=== PATIENT | male | born 1955 | race Caucasian/White ===

== ENCOUNTER 2018-06-14 19:34 | Emergency (ER) | payer OTHER, SELFPAY ==
[2018-06-14 19:47] VITALS: BP 130/51; PULSE 107; RESP 16; TEMP 37.9
--- NOTE | 2018-06-14 20:05 | ED.GENADUL ---
Disposition Clinical Impression: Sepsis Disposition: [facility] Condition: Stable Medical Decision Making - Lab Data Results reviewed for labs ordered during visit: Yes - Radiology Data Radiology results: image reviewed - Medical Decision Making pt here with fever and general weakness. Has low grade temporal temp here, suspect he has sepsis again. He could be having mrsa from accessing his shunt during dialysis. Has no cough or sob so doubt pneumonia. No urinary symptoms to suggest uti. No abdominal pain or discomfort to suggest abscess or intrabdominal source. 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 will order labs and monitor and try to get records from [facility] and [facility] pt remains HD stable, still mild tachycardia at 105. [facility] can't accept pt due to not having dialysis capabilities. [place] [facility] [facility] [place]'t take [place] tonight but may be able to take him in the morning. I discussed with our hospitalist Dr. Araiza who states that he can't accept admission here due to lack of dialsysis capabilities here. Will discuss with [facility]. Discussed with [facility] and they are accepting in transfer, Dr. Jazmyn Arroyo is accepting provider. Pt remains HD stable at this time. - Differential Diagnosis sepsis, pneumonia, blood stream infection History of Present Illness - General Chief complaint: Fever Stated complaint: JENN Time Seen by Provider: 06/14/18 19:55 Source: patient Mode of arrival: EMS Limitations: no limitations - History of Present Illness Initial comments: 62 yo male with hx of esrd on dialysis mwf who comes in with chief complaint of fevers. The past few months he has had episodes of fevers, has been [place] [facility] [place] and also [facility] in March for similar reasons, fever and weakness without a known cause though his blood cultures done here in March prior to transfer to [facility] grew mrsa. He states he was told [facility] didn't know where the mrsa came from but he was tx'd and d/c'd home. Yesterday he had a fever to 101.2 and he went to the [facility] in [facility] and states he had cultures and labs done and had no fever there so was d/c'd home. Tonight he has had general weakness otherwise no other symptoms and had a fever to 104 so came here. Complaint: fever Onset/Timin -: days(s) Consistency: intermittent Improves with: none Worsens with: none Associated Symptoms: weakness Treatments Prior to Arrival: none - Related Data Amitriptyline [Elavil] 10 mg PO DAILY 03/21/13 Aspirin [(None)] 81 mg PO UNKNOWN 03/21/13 Calcium Acetate [Phoslo] 667 mg PO TID 03/21/13 CloNIDine [Catapres-Tts 3] 0.3 mg TD 03/21/13 Diltiazem HCl [Diltiazem ER] 360 mg PO DAILY 03/21/13 Furosemide [Lasix] 10 mg PO 03/21/13 GlipiZIDE [Glucotrol] 10 mg PO BID 03/21/13 Lisinopril [Prinivil] 40 mg PO BID 03/21/13 Metoprolol [Lopressor] 25 mg PO DAILY 03/21/13 Metoprolol [Lopressor] 50 mg PO HS 03/21/13 OxyCODONE/APAP 5 mg/325 mg [Percocet 5 mg/325 mg] 1 tab PO HS 03/21/13 Simvastatin [Zocor] 20 mg PO HS 03/21/13 Sodium Bicarbonate 1,950 mg PO TID 03/21/13 Cinacalcet [Sensipar] 90 mg PO DAILY 08/19/16 Gabapentin 100 mg PO DAILY 08/19/16 Insulin Aspart [Novolog Flexpen] 1 unit SC AC 08/19/16 Insulin Glargine,Hum.rec.anlog [Lantus Solostar] 1 unit SC DAILY 08/19/16 Lanthanum Carbonate [Fosrenol] 500 ng PO DAILY 08/19/16 Psyllium [Metamucil] 1 packet PO DAILY 08/19/16 Sevelamer Carbonate [Renvela] 1 tab PO AC 08/19/16 Allergies Allergy/AdvReac Type Severity Reaction Status Date / Time No Known Allergies Allergy Unverified 01/07/18 16:15 Review of Systems Constitutional: fever, weakness Respiratory: denies: cough, shortness of breath Cardiovascular: denies: chest pain Gastrointestinal: denies: abdominal pain, nausea, vomiting Musculoskeletal: denies: back pain Skin: denies: rash Neurological: denies: headache Comment: All other systems reviewed and negative Past Medical History - Past Medical History Medical history: cancer (Colon), diabetes, ESRD, hypertension Surgical history: cancer surgery (colon resection), vascular surgery (AV fistula) - Social History Alcohol use: none Drug use: none General Exam - General Limitations: no limitations General appearance: alert, in no apparent distress - Head Head exam: Present: atraumatic - Eye Eye exam: Present: normal apperance - ENT ENT exam: Present: mucous membranes moist - Neck Neck exam: Present: normal inspection, full ROM. Absent: meningismus - Respiratory Respiratory exam: Present: normal lung sounds bilaterally. Absent: respiratory distress - Cardiovascular Cardiovascular Exam: Present: regular rate, normal rhythm, normal heart sounds, other (Hr 90 on my exam) - GI/Abdominal GI/Abdominal exam: Present: soft. Absent: tenderness - Extremities Exam Extremities exam: Present: normal inspection. Absent: calf tenderness - Neurological Exam Neurological exam: Present: alert, oriented X3 - Psychiatric Psychiatric exam: Present: normal affect - Skin Skin exam: Present: warm. Absent: rash Course Vital Signs - 24 hr 06/14/18 19:47 Temperature 100.2 F H Pulse 107 H Respiratory 16 Rate Blood Pressure 130/51
[2018-06-14 20:17] LABS: Bilirubin Negative (Negative); Blood Moderate (Negative); Clarity Sl Cloudy; Glucose 250 mg/dL (Negative); Ketones Negative (Negative); Leukocyte Esterase Negative (Negative); Nitrite Negative (Negative); Urobilinogen 0.2 EU/dL (Up TO 0.2); pH >= 9.0 (5-8)
[2018-06-14 20:25] LABS: Abs Immature Grans 0.02 k/cumm (0.0-0.09); Absolute Basophil Count 0.03 k/cumm (0.0-0.2); Absolute Eosinophil Count 0.18 k/cumm (0.0-0.7); Absolute Lymphocyte Count 0.84 k/cumm (1.2-3.4); Absolute Monocyte Count 0.62 k/cumm (0.11-0.7); Absolute Neutrophil Count 5.67 k/cumm (1.2-6.7); Basophils % 0.4; Eosinophils % 2.4; HCT 30.8 % (40.0-50.0); HGB 10.3 g/dL (13.5-17.5); Immature Grans % 0.3; Lymphocytes % 11.4; Mean Corp. HGB Concentration 33.4 g/dL (32.0-36.0); Mean Corpuscular Hemoglobin 31.3 pg (27.0-33.0); Mean Corpuscular Volume 93.6 fL (80-95); Mean Platelet Volume 8.7 fL (8.0-11.0); Monocytes % 8.4; Neutrophils % 77.1; Platelet Count 190 x1000/uL (130-400); RBC 3.29 m/cumm (4.50-6.00); RBC Distribution Width 16.8 % (11.8-14.1); White Blood Cell Count 7.36 k/cumm (4.4-10.8)
[2018-06-14 20:26] LABS: Bacteria Negative HPF (Negative); C & S Indicated? C&S Done As Ordered; Casts Negative LPF (Negative); Crystals Negative HPF (Negative); Epithelial Cells Rare HPF (Negative); Mucus Negative (Negative); RBC 20-50 (0-2); WBC Negative HPF (0-5)
[2018-06-14 20:30] LABS: Lactate-non-spesis 1.5 mmol/L (0.6-1.4)
[2018-06-14 20:56] LABS: ALT 23 U/L (12-78); AST 17 U/L (15-37); Albumin 3.1 g/dL (3.4-5.0); Alkaline Phosphatase 64 U/L (46-116); Anion Gap 11.7 mmol/L (3-11); BUN 44 mg/dL (7-18); Bilirubin, Direct 0.23 mg/dL (0.00-0.20); CO2 26.3 mmol/L (21.0-32.0); Chloride 97 mmol/L (98-107); Estimated GFR 5.77 (mL/min/1.73m2); Glucose 181 mg/dL (70-100); Magnesium 2.3 mg/dL (1.8-2.4); Potassium 5.3 mmol/L (3.5-5.1); Sodium 135 mmol/L (136-145)
[2018-06-14 20:59] LABS: CREATININE 9.26 mg/dL (0.70-1.30)
[2018-06-14] MEDS: VANCOMYCIN 1,000 MG in Normal Saline 250 ML 166.6666 MG IVPB (21:07)
--- NOTE | 2018-06-14 21:57 | DI.VRAD_ITS ---
EXAM: XR Chest, 2 Views CLINICAL HISTORY: 62 years old, male; Signs and symptoms; Fever TECHNIQUE: Frontal and lateral views of the chest. COMPARISON: [facility] - PORTABLE CHEST ONE VIEW 2018-03-19 20:27 FINDINGS: Lungs: Unremarkable. No consolidation. Pleural space: Unremarkable. No pneumothorax. Heart: There is mild cardiomegaly. Mediastinum: Unremarkable. Bones/joints: Marginal osteophytic spurring is present throughout the thoracic vertebrae. IMPRESSION: 1. No acute pulmonary disease or acute thoracic findings are detected. Dictated and Authenticated by: Antonio Vines MD. Ordering:DAYDAY TOLBERT MD
[2018-06-14 22:01] VITALS: BP 151/101; PULSE 94; RESP 18; TEMP 37.3; O2SAT 95
--- NOTE | 2018-06-14 22:03 | DI.REPORT_ITS ---
SYMPTOM/DIAGNOSIS: FEVER CHEST X-RAY: Frontal and lateral views. Comparison 03/19/18. The heart is enlarged but stable. Pulmonary vasculature is within normal limits. No consolidating infiltrates, effusions or pneumothoraces are identified. Degenerative changes are seen in the spine. IMPRESSION: No acute pulmonary process.
[2018-06-14 22:58] VITALS: BP 162/99; PULSE 104; RESP 18; O2SAT 94
[2018-06-14 23:11] VITALS: TEMP 38.4
[2018-06-14] MEDS: Acetaminophen 500 MG TAB 1000 MG PO (23:11)
--- NOTE | 2018-06-17 14:08 | NUR.NOTE ---
Nursing Note: Patient transferred to [place] [id number], urine culture results faxed to [phone].
== END 2018-06-14 23:01 ==
PROVIDERS: Emergency Provider Emergency Medicine
DX: A41.9 Sepsis, unspecified organism (principal); R53.1 Weakness; E11.22 Type 2 diabetes mellitus with diabetic chronic kidney disease; Z79.4 Long term (current) use of insulin; I12.0 Hypertensive chronic kidney disease with stage 5 chronic kidney disease or end stage renal disease; N18.6 End stage renal disease; Z99.2 Dependence on renal dialysis
CPT/HCPCS: 36415; 80053; 80076; 87040; 87077; 96365; 99285; 71046; 81003; 81015; 83605; 83735; 85025; 87086; 87186

== ENCOUNTER 2019-03-03 21:03 | Emergency (ER) | payer OTHER, SELFPAY ==
[2019-03-03] VITALS (46 sets, daily range): BP systolic 64–112; BP diastolic 35–78; PULSE 94–154; RESP 16–35; TEMP 38.3–40; O2SAT 88–99
[2019-03-03] MEDS: Lactated Ringers 500 ML IV (21:10)
--- NOTE | 2019-03-03 21:11 | DI.CT_ITS ---
SYMPTOM/DIAGNOSIS: FEVER, SEPSIS CHEST, ABDOMEN AND PELVIC CT: CHEST: Linear areas of scarring or atelectasis are noted in the lung bases. There are scattered nodular densities in both lungs, the largest in the right upper lobe measuring 9 mm. There is no evidence of a pneumothorax. Mild wall thickening in the duodenum and proximal small bowel suggest the possibility of nonspecific duodenitis and enteritis. These findings to be correlated clinically. Colonic diverticula are noted. Note is made of bilateral gynecomastia. SUMMARY: Scattered nodular densities are noted in both lungs, the largest in the right upper lobe measuring 9 mm. ABDOMEN AND PELVIS: The liver is normal. The gallbladder is normal. The pancreas is normal. The spleen is unremarkable. The adrenals are normal. There is cortical thinning and atrophy involving both kidneys. Focal right hypodensity cannot be further characterized on this examination. There is no evidence of hydronephrosis or ureteral stones. Mild wall thickening of the duodenum and proximal small bowel suggest nonspecific duodenitis or enteritis. Colonic diverticula are present and there is borderline to mild nonspecific colitis involving the sigmoid. There is no evidence of an appendicitis. The bladder is decompressed. Zhou catheter in place. A small quantity of intraluminal fluid is consistent with instrumentation. The reproductive organs as visualized are unremarkable. There is no evidence of free air or free fluid in the intraperitoneal space. No acute bony abnormality is seen. Bilateral fat containing inguinal hernias are demonstrated without evidence of incarceration. There are atherosclerotic changes involving the aorta without evidence of an aneurysm. There is no evidence of lymphadenopathy. SUMMARY: Mild wall thickening of the duodenum and proximal small bowel raise the possibility of nonspecific duodenitis and enteritis, these findings to be correlated clinically. There is also borderline mild nonspecific colitis involving the sigmoid colon.
--- NOTE | 2019-03-03 21:13 | W.ED.GENAD ---
Discharge Plan Disposition Patient Disposition: [facility] Condition: Stable Discharge Details Chief Complaint: Fever Clinical Impression: Septic shock Primary Care Provider: Ann Tate ED Provider: Asher Herrera [place] Meds and New Rx's Prescriptions: No Action furosemide 10 MG/ML solution 10 mg PO RF: 0 glipizide 10 MG tablet 10 mg PO BID RF: 0 oxycodone-acetaminophen 1 TAB tablet 1 tab PO HS RF: 0 amitriptyline 10 MG tablet 10 mg PO DAILY RF: 0 sodium bicarbonate 650 MG tablet 1,950 mg PO TID RF: 0 simvastatin 20 MG tablet 20 mg PO HS RF: 0 aspirin 81 MG tablet,chewable 81 mg PO UNKNOWN RF: 0 lisinopril 40 MG tablet 40 mg PO BID RF: 0 calcium acetate [PhosLo] 667 MG capsule 667 mg PO TID RF: 0 gabapentin 100 MG capsule 100 mg PO DAILY RF: 0 insulin aspart U-100 [Novolog Flexpen U-100 Insulin] 100 UNIT/ML insulin pen 1 unit Sub-Q AC RF: 0 cinacalcet [Sensipar] 30 MG tablet 90 mg PO DAILY RF: 0 insulin glargine [Lantus Solostar U-100 Insulin] 100 UNIT/ML insulin pen 1 unit Sub-Q DAILY RF: 0 sevelamer carbonate [Renvela] 800 MG tablet 2 tab PO AC RF: 0 Psyllium [Metamucil] 1 EACH Pkt 1 packet PO DAILY RF: 0 cephalexin 250 MG capsule 250 mg PO DAILY RF: 0 amlodipine [Norvasc] 5 MG tablet 5 mg PO DAILY RF: 0 allopurinol 100 MG tablet 50 mg PO DAILY RF: 0 Medical Decision Making Patient arrives to ED septic. He received 150 mL's of saline per EMS through a 20-gauge. 18-gauge catheter placed here. 500 mL bolus of LR ordered. He seems a little confused but is denying any pain. He denies difficulty breathing or cough. Records and confirmed that he has had sepsis before without clear source. They presumed from his fistula. He did receive vancomycin late this afternoon after dialysis. Temperature-sensing Zhou placed. Patient still febrile. He is given IV Tylenol. Laboratory studies sent. CT scan of the chest abdomen pelvis without contrast ordered. EKG obtained. Patient's white count and hemoglobin are normal. Kidney function is abnormal consistent with his end-stage renal disease. His creatinine is 5.5 status post dialysis today. Potassium is 5.2. Glucose is 240. Lactic acid is 4.1. Liver function is good. Troponin is 0.09 but has typically been elevated whenever checked and is likely related to kidney disease. Urine does not show evidence of infection. Patient's mental status seems a little better with fluid boluses. Blood pressures were up over 100 transiently but dipped back down. At 250 mL bolus of LR has been ordered. Still awaiting results of CT scan. I have spoken to the [facility] and they do not have beds. Waiting to speak to [facility] for ICU transfer. 23:15 -patient's mental status does seem better to me. His blood pressure continues to go up and down. With fluid boluses tends to be in the 90s. Once the boluses over drops back down. He is almost a liter of LR. We will continue 250 mL boluses up to 2 L before starting levophed. CT scan of the abdomen pelvis shows pulmonary nodules but no pneumonia. Some thickening of the duodenum possibly suggestive of non-specific duodenitis as well as some borderline nonspecific colitis. There is no discrete fluid collections. Patient's stool has become liquidy and brown with a reddish tint which is Hemoccult positive. Case discussed with [facility] ICU team. Reviewed patient's status, labs, CT scans. Recommend giving a dose of Zosyn in addition to the Vanco that he received previously. Continue aliquots of LR boluses. Start levophed if continued low blood pressure after 2 L in. They have accepted him for transfer and admission to the ICU. Helicopter is not flying. We have contacted [facility] and will be transferring the patient down. Dr. Leon is accepting. Medical Records Medical records reviewed: Yes I reviewed the patient's medical records. Lab Data Lab results reviewed: Yes I reviewed the patient's lab results. ECG Data Attestation: I personally reviewed and interpreted this ECG (s) as follows: Prior ECG tracings: not available for review Interpretation: Sinus tachycardia at 144. Normal axis and intervals. Nonspecific rate related ST changes. HPI General Mode of arrival: EMS. Date/Time Provider Initiated Documentation: 03/03/19 21:04. Limitations to Documentation: altered mental status. Information obtained by: patient, family, EMS, RN notes reviewed and old records reviewed. HPI Narrative: Patient is brought in from home by ambulance for evaluation of fever and altered mental status. Patient not able to provide much of a history. He does seem somewhat confused. He is awake and answers questions. He denies any pain. Of shortness of. He had dialysis today. Apparently had a fever at dialysis but was otherwise feeling okay. He was given a gram of vancomycin after dialysis. EMS reports that they gave him 150 mL's of saline in route. He arrives here tachycardic and hypotensive as well as febrile. reports that he has episodes of sepsis without clear etiology. He is been admitted to [facility] previously. He was totally fine all day today until he went to dialysis. Since coming home he has got worse. Related Data Home Medications Medication Instructions Recorded Confirmed amitriptyline 10 mg PO DAILY 03/21/13 06/14/18 aspirin 81 mg PO UNKNOWN 03/21/13 06/14/18 calcium acetate [Phoslo] 667 mg PO TID 03/21/13 06/14/18 furosemide 10 mg PO 03/21/13 03/21/13 glipizide 10 mg PO BID 03/21/13 06/14/18 lisinopril 40 mg PO BID 03/21/13 06/14/18 oxycodone-acetaminophen 1 tab PO HS 03/21/13 06/14/18 simvastatin 20 mg PO HS 03/21/13 06/14/18 sodium bicarbonate 1,950 mg PO TID 03/21/13 06/14/18 Psyllium [Metamucil] 1 packet PO DAILY 08/19/16 06/14/18 cinacalcet [Sensipar] 90 mg PO DAILY 08/19/16 06/14/18 gabapentin 100 mg PO DAILY 08/19/16 06/14/18 insulin aspart U-100 [Novolog 1 unit SUB-Q AC 08/19/16 06/14/18 Flexpen U-100 Insulin] insulin glargine [Lantus Solostar] 1 unit SUB-Q DAILY 08/19/16 06/14/18 sevelamer carbonate [Renvela] 2 tab PO AC 08/19/16 06/14/18 allopurinol 50 mg PO DAILY 06/14/18 06/14/18 amlodipine [Norvasc] 5 mg PO DAILY 06/14/18 06/14/18 cephalexin 250 mg PO DAILY 06/14/18 06/14/18 Allergies Allergy/AdvReac Type Severity Reaction Status Date / Time No Known Allergies Allergy Unverified 06/14/18 22:24 General Stated Complaint: Fever QI: 2 Review of Systems Review of Systems Unobtainable due to mental status [facility] Medical History CAD (coronary artery disease) (Chronic) Diabetes mellitus (Chronic) HTN (hypertension) (Chronic) Hypercholesterolemia (Chronic) EDOUARD (obstructive sleep apnea) (Chronic) Colon cancer (Resolved) Surgical History AV fistula (Chronic) History of heart artery stent (Chronic) S/P colon resection (Inactive) Social History Smoking/Tobacco Use Status: Never Drug use: Never Do you feel safe in your relationship?: Yes Exam Narrative Exam Narrative: Vitals: Patient is febrile, tachycardic and hypotensive. Const: Obese male awake but confused. HEENT: NC/AT. Normal facial exam. Eyes: Normal conjunctiva and sclera. Neck: Supple. Trachea midline. Lungs: Normal respiratory effort but tachypneic. Lungs are clear. Cor: RRR without murmur/gallop. Tachycardic. GI: Soft. NT/ND. No guarding or rebound. Neuro: Awake and mildly confused. CN grossly in tact. No focal deficit, moving all extremities equally. Ext: No C/C/E. No deformity or tenderness. Skin: Warm and dry with faint maculapapular type rash rather diffuse but scattered. No petechia or purpura noted. Course Vital Signs Temperature 100.9 F H 03/03/19 21:03 Pulse 143 H 03/03/19 21:03 Respiratory Rate 33 H 03/03/19 21:03 Blood Pressure 81/52 L 03/03/19 21:03 Pulse Oximetry 96 03/03/19 21:03 Temperature 100.9 F H 03/03/19 21:03 Temperature Source Skin 03/03/19 21:03 Pulse 143 H 03/03/19 21:03 Respiratory Rate 33 H 03/03/19 21:03 Blood Pressure 81/52 L 03/03/19 21:03 Blood Pressure Position Sitting 03/03/19 21:03 Pulse Oximetry 96 03/03/19 21:03 Oxygen Delivery Method Room Air 03/03/19 21:03 Oxygen Flow Rate 0 03/03/19 21:03 Lab/Test Results Lab/Test Results: 03/03/19 21:11 Blood Blood Culture - Pending 03/03/19 21:11 Blood Blood Culture - Pending Critical Care Time Critical Care Time: Yes Total Critical Care Time: 75 Attestation: septic shock
[2019-03-03 21:28] LABS: Lactate-non-spesis 4.1 mmol/l (0.6-1.4)
[2019-03-03 21:29] LABS: Abs Immature Grans 0.02 k/cumm (0.0-0.09); Absolute Basophil Count 0.01 k/cumm (0.0-0.2); Absolute Eosinophil Count 0.03 k/cumm (0.0-0.7); Absolute Lymphocyte Count 0.67 k/cumm (1.2-3.4); Absolute Monocyte Count 0.27 k/cumm (0.11-0.7); Absolute Neutrophil Count 5.39 k/cumm (1.2-6.7); Basophils % 0.2; Eosinophils % 0.5; HCT 44.5 % (40.0-50.0); Immature Grans % 0.3; Lymphocytes % 10.5; Mean Corp. HGB Concentration 31.5 g/dL (32.0-36.0); Mean Corpuscular Hemoglobin 28.7 pg (27.0-33.0); Mean Corpuscular Volume 91.2 fL (80-95); Mean Platelet Volume 9.2 fL (8.0-11.0); Monocytes % 4.2; Neutrophils % 84.3; Platelet Count 325 x1000/uL (130-400); RBC 4.88 m/cumm (4.50-6.00); RBC Distribution Width 20.7 % (11.8-14.1); White Blood Cell Count 6.39 k/cumm (4.4-10.8)
[2019-03-03] MEDS: ACETAMINOPHEN 1,000 MG/100 ML BTL 400 MG IVPB (21:35)
[2019-03-03 21:38] LABS: Bilirubin Negative (Negative); Blood Small (Negative); Clarity Clear; Glucose 500 mg/dL (Negative); Ketones Negative (Negative); Leukocyte Esterase Negative (Negative); Nitrite Negative (Negative); Specific Gravity 1.015 (1.005-1.025); Urobilinogen 0.2 EU/dL (Up TO 0.2); pH 8.5 (5-8)
[2019-03-03 21:43] LABS: Bacteria Negative HPF (Negative); C & S Indicated? No; Casts Negative LPF (Negative); Crystals Negative HPF (Negative); Epithelial Cells Negative HPF (Negative); Mucus Negative (Negative); Other Cells Few Renal (Negative); WBC 0-2 HPF (0-5)
[2019-03-03 21:49] LABS: ALT 33 U/L (12-78); AST 21 U/L (15-37); Albumin 3.6 g/dL (3.4-5.0); Alkaline Phosphatase 104 U/L (46-116); Anion Gap 11.9 mmol/L (3-11); BUN 19 mg/dL (7-18); Bilirubin, Total 1.2 mg/dL (0.2-1.0); CO2 30.1 mmol/L (21.0-32.0); Calcium 9.5 mg/dL (8.5-10.1); Chloride 93 mmol/L (98-107); Estimated GFR 10.58 (mL/min/1.73m2); Glucose 240 mg/dL (70-100); Magnesium 1.9 mg/dL (1.8-2.4); Potassium 5.2 mmol/L (3.5-5.1); Sodium 135 mmol/L (136-145); Total Protein 8.1 g/dL (6.4-8.2)
[2019-03-03 21:52] LABS: CREATININE 5.46 mg/dL (0.70-1.30); Troponin I 0.09 ng/mL (0.00-0.06)
[2019-03-03] MEDS: Lactated Ringers 250 ML 500 ML IV ×2 (22:22→23:00)
--- NOTE | 2019-03-03 22:34 | DI.VRAD_ITS ---
EXAM: CT Chest Without Contrast EXAM DATE/TIME: 03/03/2019 9:13 PM CLINICAL HISTORY: 63 years old, male; Signs and symptoms; Patient HX: Fever, sepsis TECHNIQUE: Imaging protocol: Axial computed tomography images of the chest without intravenous contrast. Coronal and sagittal reformatted images were created and reviewed. Radiation optimization: All CT scans at this facility use at least one of these dose optimization techniques: automated exposure control; mA and/or kV adjustment per patient size (includes targeted exams where dose is matched to clinical indication); or iterative reconstruction. COMPARISON: No relevant prior studies available. FINDINGS: Lungs: Linear scarring or atelectasis both lung bases. Scattered nodular densities both lungs, largest right upper lobe 9 mm. Pleural space: Normal. No pneumothorax. No pleural effusion. Heart: Coronary artery calcifications noted. Aorta: Aorta demonstrates mild atherosclerotic calcification. Lymph nodes: Prominent mediastinal nodes noted. Bones/joints: Unremarkable. No acute fracture. Soft tissues: Bilateral gynecomastia. IMPRESSION: Scattered nodular densities both lungs, largest right upper lobe 9 mm. EXAM: CT Abdomen and Pelvis Without Contrast EXAM DATE/TIME: 03/03/2019 9:13 PM CLINICAL HISTORY: 63 years old, male; Signs and symptoms; Patient HX: Fever, sepsis TECHNIQUE: Imaging protocol: Axial computed tomography images of the abdomen and pelvis without contrast. Coronal and sagittal reformatted images were created and reviewed. Radiation optimization: All CT scans at this facility use at least one of these dose optimization techniques: automated exposure control; mA and/or kV adjustment per patient size (includes targeted exams where dose is matched to clinical indication); or iterative reconstruction. COMPARISON: No relevant prior studies available. FINDINGS: Lower thorax: See CT chest report. ABDOMEN: Liver: Normal. No mass. Gallbladder and bile ducts: Normal. No calcified stones. No ductal dilation. Pancreas: Normal. No ductal dilation. Spleen: Normal. No splenomegaly. Adrenals: Normal. No mass. Kidneys and ureters: Cortical thinning and atrophy both kidneys. Focal right renal hypodensity that cannot be further characterized on the current examination. No hydronephrosis. No ureteral stones. Stomach and bowel: Mild wall thickening of the duodenum and proximal small bowel suggestive of a nonspecific duodenitis and enteritis. Correlate clinically. Colonic diverticula present. Borderline mild nonspecific colitis sigmoid colon. Appendix: No evidence of appendicitis. PELVIS: Bladder: Bladder decompressed by a Zhou catheter, but otherwise unremarkable. Small amount of intraluminal air consistent with instrumentation. Reproductive: Unremarkable as visualized. ABDOMEN and PELVIS: Intraperitoneal space: Normal. No free air. No significant fluid collection. Bones/joints: No acute fracture. No dislocation. Soft tissues: Bilateral fat containing inguinal hernias without incarceration. Vasculature: Aorta demonstrates mild atherosclerotic calcification. Lymph nodes: Normal. No enlarged lymph nodes. IMPRESSION: 1. Mild wall thickening of the duodenum and proximal small bowel suggestive of a nonspecific duodenitis and enteritis. Correlate clinically. 2. Borderline mild nonspecific colitis sigmoid colon. Dictated and Authenticated by: Irineo Garcia MD. Ordering:MIGUELITO Sterling MD
[2019-03-03] MEDS: PIPERACILLIN/TAZO 4.5 GM in Normal Saline 100 ML IVPB (23:14)
== END 2019-03-03 23:59 | disposition short-term general hospital (02) ==
PROVIDERS: Emergency Provider Emergency Medicine; PCP Internal Medicine
DX: A41.89 Other specified sepsis (principal); R65.21 Severe sepsis with septic shock; R00.0 Tachycardia, unspecified; I95.9 Hypotension, unspecified; E11.22 Type 2 diabetes mellitus with diabetic chronic kidney disease; I12.0 Hypertensive chronic kidney disease with stage 5 chronic kidney disease or end stage renal disease; N18.6 End stage renal disease; R91.8 Other nonspecific abnormal finding of lung field; Z99.2 Dependence on renal dialysis
CPT/HCPCS: 36415; 51702; 71250; 80053; 87040; 93005; 96361; 96365; 96375; 99291; 74176; 81003; 81015; 83605; 83735; 84484; 85025; 87186; 93010; J2543

== ENCOUNTER 2022-09-11 00:13 | Emergency (ER) | payer OTHER, SELFPAY ==
[2022-09-11] VITALS (103 sets, daily range): BP systolic 48–132; BP diastolic 22–96; PULSE 62–109; RESP 18; TEMP 36.5; O2SAT 93–100
[2022-09-11] MEDS: Tranexamic Acid 1,000 MG/10 ML VIAL 1000 MG IVP (00:15)
--- NOTE | 2022-09-11 00:45 | DI.CT_ITS ---
Exam(s) CT ABDOMEN PELVIS CTA EXAM: CT ABDOMEN PELVIS CTA CLINICAL HISTORY: recent colonoscopy polypectomy, rectal bleed today. TECHNIQUE: Imaging Protocol: Axial CT angiography was performed with multi-slice acquisition and m ulti-planar and/or 3D reconstructions. CONTRAST MATERIAL: Intravenous: Omnipaque 350 Contrast volume:structured data in ml Oral: / no COMPARISON: CT CT CHEST/ABD/PEL WO from 03/03/2019 FINDINGS: Vascular Structures: Celiac Rodanthe/SMA: Celiac artery patent and normal diameter. Mild stenosis superior mesenteric artery. . Renal Arteries: There is a single renal artery perfusing each kidney. Renal arteries are atrophic. Aorta: No aneurysm. No dissection. Mild atherosclerotic changes. Pelvis: Iliac Arteries: Calcifications. No evidence of significant stenosis. Common Femoral Arteries: No evidence of stenosis. There is arterial phase contrast in the left common femoral vein through left iliac vein. The there appears to be communication at the level of the common femoral artery. Heart: Aortic valve prosthesis. Coronary artery stent. Soft Tissues: Lung bases:Mild basilar scarring. Liver: Normal density. No measurable mass. Gallbladder and biliary tract: No radiodense calculus or dilation. Pancreas: Normal density, no abnormal calcifications or inflammatory process. Spleen: Normal. Kidneys: Severe bilateral renal atrophy.. No radiodense stones or obstructive uropathy. No masses se en. Adrenal glands: No masses seen. Bladder: Symmetric distention, no gross wall thickening. Bowel: Large quantity of stool in the rectosigmoid. Remainder of the colon appears fluid filled. No wall thickening.. Right hemicolectomy. Small bowel and stomach unremarkable. No obstruction or julián wel wall thickening. Peritoneal cavity: No ascites, collection or mesenteric inflammatory response. Bones: Degenerative disc changes greatest at L3-4 and L5-S1. Mild scoliosis. Lymph nodes: Within normal limits. IMPRESSION: Status post right hemicolectomy. Large bowel somewhat fluid and stool distended. No inflammatory ch anges. No evidence of bowel ischemia. Abnormal communication between the left common femoral vein and artery, suspicious for AV fistula. RADIATION DOSE DELIVERED: 2,507.47mGy.cm Total DLP DATA REPOSITORY: All CT scans at this facility are submitted to the National Radiology Data Registry (NRDR) Dose Index Registry (DIR) with the [employer] ([employer]). RADIATION OPTIMIZATION: All CT scans at this facility use at least one of these dose optimization te chniques: automated exposure control; mA and/or kV adjustment per patient size (includes targeted exa ms where dose is matched to clinical indication); or iterative reconstruction.
--- NOTE | 2022-09-11 01:06 | W.ED.GENAD ---
Discharge Plan Disposition Patient Disposition: [facility] Condition: Serious Discharge Details Chief Complaint: GI Bleed Clinical Impression: Acute lower GI bleeding, Anemia, Hypotension Primary Care Provider: Ann Tate ED Provider: Reilly Burrows Home Meds and New Rx's Prescriptions: No Action furosemide 10 MG/ML solution 10 mg PO Label Comments: d/c'd glipizide 10 MG tablet 10 mg PO BID oxycodone-acetaminophen 1 TAB tablet 1 tab PO HS amitriptyline 10 MG tablet 10 mg PO BID Rx Instructions: 20 mg at night sodium bicarbonate 650 MG tablet 1,950 mg PO TID simvastatin 20 MG tablet 20 mg PO HS aspirin 81 MG tablet,chewable 81 mg PO UNKNOWN Label Comments: TAKES 4 TIMES PER WEEK lisinopril 40 MG tablet 40 mg PO BID Label Comments: taken off due to hypotension calcium acetate(phosphat bind) [PhosLo] 667 MG capsule 667 mg PO TID Label Comments: not taking gabapentin 100 MG capsule 100 mg PO DAILY insulin aspart U-100 [Novolog Flexpen U-100 Insulin] 100 UNIT/ML insulin pen 1 unit Sub-Q AC cinacalcet [Sensipar] 30 MG tablet 90 mg PO DAILY insulin glargine [Lantus Solostar U-100 Insulin] 100 UNIT/ML insulin pen 1 unit Sub-Q DAILY sevelamer carbonate [Renvela] 800 MG tablet 2 tab PO AC Psyllium [Metamucil] 1 EACH Pkt 1 packet PO DAILY cephalexin 250 MG capsule 250 mg PO DAILY amlodipine [Norvasc] 5 MG tablet 5 mg PO DAILY allopurinol 100 MG tablet 50 mg PO DAILY sevelamer carbonate [Renvela] 800 mg tablet Label Comments: Take 4 tablet by mouth three times a day with meals Ozempic 0.25 mg or 0.5 mg(2 mg/1.5 mL) Pen Injector 0.5 mg SUBCUT KEEP AT BEDSIDE Medical Decision Making 66-year-old male, history of colon cancer status postresection in remission, CKD on hemodialysis Friday, presents after recent colonoscopy on 08/2017 which he had a complex resection of a polyp near his anastomosis site. Patient had 3 episodes of bloody stool this evening. Associated lightheadedness. Has slight conjunctival and skin pallor. Is normotensive not tachycardic. Nonperitoneal. Consider rebleeding at polypectomy site. Low suspicion for perforation low suspicion for active infection. On examination patient has dried blood at anal verge/rectal vault. No active bleeding. Does have nonbleeding external hemorrhoids. Will obtain lab CT angio abdomen pelvis to assess for active bleeding. Will administer tranexamic acid. Disposition pending labs and imaging. 03: 44 patient resting comfortably no acute distress. No further bloody bowel movements while in the department. Remained hemodynamically stable heart rate of 88, manual blood pressure taken 110/58. Awaiting results of CTA abdomen pelvis. Will reassess H&H in the next 1 to 2 hours. Disposition pending results of imaging and reassessment of labs and vital signs. 4: 10 attempted to sit patient up in bed however he became acutely lightheaded. He lowered him down to a supine position with improvement of symptoms. Despite no bowel movements in department and hemodynamic stability I am concerned regarding patient's symptomatology, he also dropped from a baseline likely in the low teens to a hemoglobin of 9. Although there is not acute extravasation of contrast on CT scan patient is at high risk for rebleed and subsequent hypotension. Patient adamant that he does not want to receive a transfusion at this time as he believes it will take him off the kidney transplant list. He is amenable to Epogen however it appears that we do not carry this in the pharmacy. Currently placing consultation for admission to general surgery team. Patient is amenable to transfusion if his clinical status were to deteriorate. Incidental possible AV malformation left femoral per CTA ago patient does have history of catheterization and TAVR that were performed through his groins, has been told that he has slightly abnormal pulses left groin is followed at the [facility]. Warm well perfused lower extremities no signs of ischemia no pulsatile groin mass or bruit appreciated 5: 54 hemoglobin continues to downtrend now at 7.6. Patient has not passed any further stool. Concern for continued bleeding. Counseled patient extensively regarding the need for transfusion as his hemoglobin likely continue to downtrend below 7. Patient is very wary of proceeding with transfusion. He would rather wait and see where his numbers go. He would also like to try EPO. We do not carry EPO at this time although I will touch base again with pharmacy during the regular hours to double check. In the interim I have contacted [facility] where patient had his colonoscopy, GI team is arriving in the morning likely after 7 [facility] 8. [facility] for him to see his GI team. Patient and family are amenable to this plan. 6: [address] Alcaraz of the [facility] and reviewed patient case. Because patient is a dialysis patient and may need a transfusion with the possibility becoming fluid overloaded after transfusion and needing dialysis they are unable to accept patient as the [facility] does not have dialysis capabilities. I have placed a call to [facility] and discussed the case with the transfer center who is reviewing the case with ICU team and medical and health services manager. 7: 51 spoke with ICU team at [facility] who has accepted patient for transfer. Patient family amenable to transfer. HPI General Date/Time Provider Initiated Documentation: 09/11/22 00:59. HPI Narrative: 66-year-old male history of CKD on dialysis Friday, history of colon cancer s/p resection in the late , in remission, recent colonoscopy 09/05 in which a complex resection of a polyp was performed including hot and cold avulsion, requiring coagulation grasper for bleeding cessation, presents with rectal bleeding that began earlier. Evening around 8 PM, 3 large bloody bowel movements. Patient feeling slightly lightheaded. Patient denies blood thinner use. Related Data Home Medications Medication Instructions Recorded Confirmed amitriptyline 10 mg tablet 10 mg PO BID 03/21/13 09/11/22 aspirin 81 mg chewable tablet 81 mg PO UNKNOWN 03/21/13 09/11/22 calcium acetate(phosphat bind) 667 667 mg PO TID 03/21/13 06/14/18 mg capsule (PhosLo) furosemide 10 mg/mL oral solution 10 mg PO 03/21/13 03/21/13 glipizide 10 mg tablet 10 mg PO BID 03/21/13 06/14/18 lisinopril 40 mg tablet 40 mg PO BID 03/21/13 06/14/18 oxycodone-acetaminophen 5 mg-325 1 tab PO HS 03/21/13 06/14/18 mg tablet simvastatin 20 mg tablet 20 mg PO HS 03/21/13 09/11/22 sodium bicarbonate 650 mg tablet 1,950 mg PO TID 03/21/13 06/14/18 Psyllium [Metamucil] 1 packet PO DAILY 08/19/16 06/14/18 cinacalcet 30 mg tablet (Sensipar) 90 mg PO DAILY 08/19/16 06/14/18 gabapentin 100 mg capsule 100 mg PO DAILY 08/19/16 06/14/18 insulin aspart U-100 100 unit/mL 1 unit subcut AC 08/19/16 06/14/18 (3 mL) subcutaneous pen (Novolog Flexpen U-100 Insulin aspart) insulin glargine 100 unit/mL (3 1 unit subcut DAILY 08/19/16 06/14/18 mL) subcutaneous pen (Lantus Solostar U-100 Insulin) sevelamer carbonate 800 mg tablet 2 tab PO AC 08/19/16 09/11/22 (Renvela) allopurinol 100 mg tablet 50 mg PO DAILY 06/14/18 09/11/22 amlodipine 5 mg tablet (Norvasc) 5 mg PO DAILY 06/14/18 06/14/18 cephalexin 250 mg capsule 250 mg PO DAILY 06/14/18 06/14/18 semaglutide 0.25 mg or 0.5 mg (2 0.5 mg subcut KEEP AT BEDSIDE 09/11/22 09/11/22 mg/1.5 mL) subcutaneous pen injector (Ozempic) sevelamer carbonate 800 mg tablet mg 09/11/22 09/11/22 (Renvela) Allergies Allergy/AdvReac Type Severity Reaction Status Date / Time chlorhexidine Allergy Mild Unverified 09/11/22 00:35 General Stated Complaint: GI Bleed QI: 3 Review of Systems Narrative: Review of Systems Constitutional: negative Eyes: negative ENT: negative Cardiovascular: negative Respiratory: negative Gastrointestinal: Rectal bleeding : negative Musculoskeletal: negative Skin: negative Neurologic: negative Psych: negative PFSH All Active Problems (Updated 09/11/22 @ 07:54 by Reilly Burrows MD) Acute lower GI bleeding (Acute) Anemia (Chronic) Hypotension (Acute) Medical History (Updated 09/11/22 @ 07:54 by Reilly Burrows MD) CAD (coronary artery disease) Colon cancer Diabetes mellitus HTN (hypertension) Hypercholesterolemia EDOUARD (obstructive sleep apnea) Surgical History AV fistula History of heart artery stent S/P colon resection Social History Smoking/Tobacco Use Status: Never Smoking risk assessment performed?: Yes Alcohol Intake: never Drug use: Never Substance use type: does not use Do you feel safe at home: Yes Do you feel safe in your relationship?: Yes Exam Narrative Exam Narrative: Physical Examination General: alert, awake, cooperative, resting comfortably, no acute distress HEENT: normocephalic, atraumatic; PERRL, EOM intact, slight pallor to conjunctiva Neck: supple, trachea midline; full ROM Chest: normal to inspection Respiratory: normal respiratory effort, speaking in full sentences, clear to auscultation, no wheezing, rales or rhonchi Cardiac: regular rate, regular rhythm, S1S2 intact, no murmurs rubs or gallops GI: abdomen soft, non-tender, non-distended; no palpable mass or hepatosplenomegaly Skin: Slight pallor, no lesions, rashes or trauma appreciated Neuro: AAOx3, normal speech, moving all extremities Psych: Appropriate mood and affect Course Vital Signs Vital signs: Vital Signs Temperature 36.5 C 09/11/22 00:27 Pulse 90 09/11/22 00:27 Respiratory Rate 18 09/11/22 00:27 Blood Pressure 132/60 09/11/22 00:27 Pulse Oximetry 97 09/11/22 00:27 Temperature 36.5 C 09/11/22 00:27 Temperature Source Tympanic 09/11/22 00:27 Pulse 90 09/11/22 00:27 Respiratory Rate 18 09/11/22 00:27 Respiratory Effort 09/11/22 00:32 Blood Pressure 132/60 09/11/22 00:27 Blood Pressure Position Supine 09/11/22 00:27 Pulse Oximetry 97 09/11/22 00:27 Oxygen Delivery Method Room Air 09/11/22 00:27 Oxygen Flow Rate 0 09/11/22 00:27 Pain Level 0 09/11/22 00:27
[2022-09-11 01:12] LABS: Abs Immature Grans 0.04 10^3/uL (0.0-0.06); Absolute Basophil Count 0.06 10^3/uL (0.0-0.2); Absolute Eosinophil Count 0.33 10^3/uL (0.0-0.7); Absolute Lymphocyte Count 1.71 10^3/uL (1.2-3.4); Absolute Monocyte Count 0.95 10^3/uL (0.1-0.8); Absolute Neutrophil Count 6.61 10^3/uL (1.2-6.7); Basophils % 0.6; Eosinophils % 3.4; HCT 27.4 % (40.0-50.0); HGB 9.2 g/dL (13.5-17.5); Immature Grans % 0.4; Lymphocytes % 17.6; MCH 33.8 pg (27.0-33.0); MCHC 33.6 % (32.0-36.0); MCV 101 fL (80-95); MPV 9.9 fL (8.0-11.0); Monocytes % 9.8; Neutrophils % 68.2; Platelet Count 276 10^3/uL (130-400); RBC 2.72 10^6/uL (4.36-5.78); RDW 15.4 % (11.8-14.1); RDW-SD 55.9 fL
[2022-09-11 01:25] LABS: PTT Activated 23.7 sec (21.0-27.5); Prothrombin Time 9.7 sec (9.3-11.0)
[2022-09-11 01:27] LABS: ALT 29 U/L (16-63); AST 29 U/L (15-37); Albumin 3.5 g/dL (3.4-5.0); Alkaline Phosphatase 73 U/L (46-116); Anion Gap 7.2 mmol/L (3-11); BUN 46 mg/dL (7-18); Bilirubin, Total 0.7 mg/dL (0.2-1.0); CO2 33.8 mmol/L (21.0-32.0); Calcium 9.5 mg/dL (8.5-10.1); Chloride 97 mmol/L (98-107); Estimated GFR 5.72 (mL/min/1.73m2); Glucose 223 mg/dL (74-106); Potassium 4.2 mmol/L (3.5-5.1); Sodium 138 mmol/L (136-145); Total Protein 6.8 g/dL (6.4-8.2)
[2022-09-11 01:29] LABS: CREATININE 9.2 mg/dL (0.70-1.30)
[2022-09-11] MEDS: Omnipaque 350 MG/ML 100 ML BTL IJ (02:27)
[2022-09-11] MEDS: Normal Saline Flush 10 ML SYR IVP (02:29)
--- NOTE | 2022-09-11 03:44 | DI.VRAD_ITS ---
PROCEDURE INFORMATION: Exam: CTA Abdomen and Pelvis With Contrast, GI Bleeding Exam date and time: 09/11/2022 1:47 AM Age: 66 years old Clinical indication: Other: Rectal bleeding; Prior surgery; Surgery date: 6+ months; Surgery type: Richi colectomy, heart stent, av fistula; Patient HX: Recent colonoscopy polypectomy, rectal bleed today; Additional info: HX of colon cancer TECHNIQUE: Imaging protocol: Computed tomographic angiography of the abdomen and pelvis with contrast. 3D rendering (Not supervised by radiologist): MIP and/or 3D reconstructed images were created by the technologist. Radiation optimization: All CT scans at this facility use at least one of these dose optimization techniques: automated exposure control; mA and/or kV adjustment per patient size (includes targeted exams where dose is matched to clinical indication); or iterative reconstruction. Contrast material: OMNIPAQUE 350; Contrast volume: 100 ml; Contrast route: INTRAVENOUS (IV); COMPARISON: CT CHEST/ABD/PEL WO 03/03/2019 9:30 PM FINDINGS: Lungs: Peripheral scarring noted in both lung bases. Heart: No cardiomegaly. Coronary artery stent noted. Aortic valve replacement present. No pericardial effusion. Aorta: No aortic aneurysm. No aortic dissection. No stenosis. Mild plaque. Celiac trunk and mesenteric arteries: No occlusion. Patent celiac trunk. Mild superior mesenteric artery stenosis. Renal arteries: No occlusion or significant stenosis. Renal arteries are small bilaterally. Right iliac arteries: No occlusion or significant stenosis. Left iliac arteries: No occlusion or significant stenosis. Veins: Arterial phase contrast is present in the left femoral and iliac veins, notably asymmetric to the right. A possible arteriovenous communication is observed at the left common femoral artery; please see axial image 91 series 5. The inferior vena cava is unremarkable. Liver: Homogeneous liver. No mass. Gallbladder and bile ducts: Unremarkable. No calcified stones. No ductal dilation. Pancreas: Unremarkable. No mass. No ductal dilation. Spleen: Unremarkable. No splenomegaly. Adrenal glands: Normal. No mass. Kidneys and ureters: Severely atrophic kidneys. No hydronephrosis. No stones. Stomach and bowel: Mildly distended stomach. Nondilated small bowel. Resection of the cecum/ascending colon noted. Unremarkable ileocolic anastomosis. Surgical clips or other material noted in the descending colon. Moderate fluid noted through most of the colon. Moderate distal stool. No acute inflammatory changes observed around the colon. Scattered colonic diverticula noted. Appendix: Absent. Intraperitoneal space: No retroperitoneal hematoma. No free fluid. No free air. No abscess. Lymph nodes: Unremarkable. No enlarged lymph nodes. Urinary bladder: Collapsed. Reproductive: Unremarkable as visualized. Bones/joints: Mild levoscoliosis. No compression fracture. Severe degenerative disc disease noted at the L3-L4 level on the right. Moderate degenerative changes also present at L5-S1, greatest on the left. Additional mild degenerative changes present in the lumbar spine. Normal sacroiliac joints. Mild narrowing present in the hips. Soft tissues: No significant abdominal wall hernia. Most of the right rectus abdominus muscle is fatty replaced. Scar tissue noted in the infraumbilical abdominal wall. IMPRESSION: 1. No aortic dissection. 2. No mesenteric artery occlusion 3. Abnormal arteriovenous communication, left common femoral. Arteriovenous fistula suspected. 4. Severely atrophic kidneys. No hydronephrosis. 5. No evidence of bowel perforation. 6. Moderate distal colonic stool and moderate proximal colonic fluid. Dictated and Authenticated by: Hemant Lubin MD. Ordering:CATE Grover MD
[2022-09-11 04:45] LABS: HCT 23.1 % (40.0-50.0); HGB 7.6 g/dL (13.5-17.5)
== END 2022-09-11 09:27 | disposition short-term general hospital (02) ==
PROVIDERS: Emergency Provider Emergency Medicine; PCP Internal Medicine
DX: K92.2 Gastrointestinal hemorrhage, unspecified (principal); D64.9 Anemia, unspecified; I95.9 Hypotension, unspecified; N18.6 End stage renal disease; Z99.2 Dependence on renal dialysis; Z85.038 Personal history of other malignant neoplasm of large intestine; E11.22 Type 2 diabetes mellitus with diabetic chronic kidney disease; I12.0 Hypertensive chronic kidney disease with stage 5 chronic kidney disease or end stage renal disease
CPT/HCPCS: 80053; 86850; 86900; 86901; 96374; 99285; 74174; 85014; 85018; 85025; 85610; 85730; 99284; J3490

== ENCOUNTER 2022-10-14 18:32 | Emergency (ER) | payer OTHER, SELFPAY ==
[2022-10-14 18:35] VITALS: BP 148/58; PULSE 83; RESP 16; TEMP 36.7; O2SAT 100
--- NOTE | 2022-10-14 22:22 | ED.GENADUL_ITS ---
Discharge Plan Disposition Patient Disposition: Home Condition: Stable Discharge Details Clinical Impression: Lymphadenopathy Primary Care Provider: Mira Kumar ED Provider: Martir Salinas Home Meds and New Rx's Prescriptions: Continued amitriptyline 10 MG tablet 10 mg PO BID Rx Instructions: 20 mg at night simvastatin 20 MG tablet 20 mg PO HS aspirin 81 MG tablet,chewable 81 mg PO UNKNOWN Label Comments: TAKES 4 TIMES PER WEEK sevelamer carbonate [Renvela] 800 MG tablet 2 tab PO AC Psyllium [Metamucil] 1 EACH Pkt 1 packet PO DAILY allopurinol 100 MG tablet 50 mg PO DAILY sevelamer carbonate [Renvela] 800 mg tablet Label Comments: Take 4 tablet by mouth three times a day with meals Ozempic 0.25 mg or 0.5 mg(2 mg/1.5 mL) Pen Injector 0.5 mg SUBCUT KEEP AT BEDSIDE Discharge Instructions Instructions: Lymphadenopathy (ED) Additional Instructions: Most likely diagnosis is that of lymphadenopathy. No clear indication to initiate antibiotic therapy. We discussed initiating additional laboratory values now, obtaining CT imaging, etc. and you have declined. Please watch for new or worsening symptoms and return to the ER for any concerns. As we discussed eventual testing, CT imaging, biopsy may be indicated for definitive diagnosis. Please contact your primary care provider tomorrow to discuss your ER visit and need for outpatient reevaluation. Discharge Data Discharge Date/Time-TO BE ENTERED AT DEPARTURE: 10/14/22 22:33 Medical Decision Making This is a 66-year-old gentleman with a past medical history of diabetes, hypertension, CAD, dialysis patient, presents for left sided lymphadenopathy that he noticed again over the weekend. He denies recent illness but does report he has had some left ear pain, not sure if the pain gets from the ear or referred from the lump. He denies any overt illness but does admit to a mild dry cough. Clinically he appears well, nontoxic. No evidence of trismus. Airway is patent. Neck full range of motion. Clinically he has a left tender cervical lymph node. Given his age and comorbidities we discussed further work- up including laboratory values and or CT imaging but at this time patient declines. Will treat conservatively as a lymph node and monitor carefully. Given there is no clear source of the bacterial infection, no indication to initiate antibiotic therapy. Strict discharge and return precautions were provided. Patient understands, is agreeable to this plan, and has no additional questions or concerns upon disch arge. This documentation was generated using [employer] dictation system, please disregard any oddities of phrase or misspellings. Medical Records Medical records reviewed: Yes I reviewed the patient's medical records. Sign Out No HPI General Mode of arrival: ambulatory . Date/Time Provider Initiated Documentation: 10/14/22 21:33 . Limitations to Documentation: no limitations . Information obtained by: patient and family . History of Present Illness 66 year old M presents to the emergency department with the chief complaint of Tender, swollen lymph node, described as moderate, with intensity rated at 4. Quality is described as aching, and is localized to the neck (L sided). Patient reports no radiation. Patient started experiencing this day(s) (3-4) and it has been constant. No relieving factors improve symptom(s), No exacerbating factors reported . Patient notes no other symptoms.. Patient did receive the following treatments prior to arrival, none Related Data Home Medications Medication Instructions Recorded Confirmed amitriptyline 10 mg tablet 10 mg PO BID 03/21/13 10/14/22 aspirin 81 mg chewable tablet 81 mg PO UNKNOWN 03/21/13 10/14/22 simvastatin 20 mg tablet 20 mg PO HS 03/21/13 10/14/22 Psyllium [Metamucil] 1 packet PO DAILY 08/19/16 06/14/18 sevelamer carbonate 800 mg tablet 2 tab PO AC 08/19/16 10/14/22 (Renvela) allopurinol 100 mg tablet 50 mg PO DAILY 06/14/18 10/14/22 semaglutide 0.25 mg or 0.5 mg (2 0.5 mg subcut KEEP AT BEDSIDE 09/11/22 10/14/22 mg/1.5 mL) subcutaneous pen injector (Ozempic) sevelamer carbonate 800 mg tablet mg 09/11/22 09/11/22 (Renvela) Allergies Allergy/AdvReac Type Severity Reaction Status Date / Time chlorhexidine Allergy Mild Unverified 10/14/22 18:40 General Stated Complaint: EarProblem QI: 4 Review of Systems Constitutional Constitutional: Denies fever(s) ENT Ears, Nose, Mouth, and Throat: Denies otalgia, Reports neck mass, Denies sore throat and Denies throat swelling Cardiovascular Cardiovascular: Denies chest pain and Denies dyspnea Respiratory Respiratory: Reports cough and Denies dyspnea Gastrointestinal Gastrointestinal: Denies nausea and Denies vomiting Musculoskeletal Musculoskeletal: Denies myalgias Integumentary/Breasts Skin/Breast: Denies rash Allergic/Immunologic Allergic/Immunologic: Denies throat swelling PFSH All Active Problems Lymphadenopathy (Acute) Medical History CAD (coronary artery disease) Colon cancer Diabetes mellitus HTN (hypertension) Hypercholesterolemia EDOUARD (obstructive sleep apnea) Surgical History AV fistula History of heart artery stent S/P colon resection Social History Smoking/Tobacco Use Status: Never Smoking risk assessment performed?: Yes Alcohol Intake: never Drug use: Never Substance use type: does not use Do you feel safe at home: Yes Do you feel safe in your relationship?: Yes Exam Const General: cooperative, healthy appearing, comfortable and no acute distress Orientation: alert and awake HENNE Head: normal to inspection, normocephalic and atraumatic Ears: external ears normal, TM's normal bilaterally and EAC's normal General nose exam: external nose normal Mouth: moist mucous membranes Throat: posterior oropharynx normal Eyes General: appearance normal, both eyes and all related structures Conjunctivae: conjunctivae normal Neck Neck: normal visual inspection, full ROM, no meningeal signs, trachea midline, supple and lymphadenopathy left anterior cervical tender (Lymphadenopathy) Resp Effort & Inspection: normal respiratory effort and able to speak in complete sentences Auscultation: clear to auscultation bilaterally Cardio Rate: regular rate Rhythm: regular rhythm Skin General skin exam: no rashes or lesions noted Neuro General: patient alert, patient awake, moves all extremities and no focal motor deficits Sensory Exam: no sensory deficits noted Psych Appearance: grossly normal Mental Status: mental status grossly normal Course Vital Signs Vital signs: Vital Signs Temperature 36.7 C 10/14/22 18:35 Pulse 83 10/14/22 18:35 Respiratory Rate 16 10/14/22 18:35 Blood Pressure 148/58 H 10/14/22 18:35 Pulse Oximetry 100 10/14/22 18:35 Temperature 36.7 C 10/14/22 18:35 Temperature Source Temporal Artery Scan 10/14/22 18:35 Pulse 83 10/14/22 18:35 Respiratory Rate 16 10/14/22 18:35 Respiratory Effort Non-Labored 10/14/22 18:38 Blood Pressure 148/58 H 10/14/22 18:35 Blood Pressure Position Sitting 10/14/22 18:35 Pulse Oximetry 100 10/14/22 18:35 Oxygen Delivery Method Nasal Cannula 10/14/22 18:35 Pain Level 5 10/14/22 18:38
== END 2022-10-14 22:33 | disposition home or self-care (01) ==
PROVIDERS: Emergency Provider Physician Assistant; PCP Nurse Practitioner Family
DX: R59.0 Localized enlarged lymph nodes (principal)
CPT/HCPCS: 99281; 99282